=== PATIENT | male | born 1990 | race Two or more races ===

== ENCOUNTER 2023-12-28 09:55 | Inpatient (IN) | payer OTHER ==
[2023-12-28] MEDS: ACETAMINOPHEN 1000 MG/100 ML BAG IVPB ONE ×2 (10:20→15:39)
[2023-12-28] MEDS: SODIUM CHLORIDE 1,000 ML IV STA (10:20)
[2023-12-28] MEDS ORDERED: FENTANYL CITRATE/PF 50 MCG/ML VIAL ONE (10:23)
[2023-12-28] MEDS ORDERED: ACETAMINOPHEN INJECTION 100 ML IVPB ONE ×2 (10:24→15:34)
[2023-12-28 11:10] LABS: INR 1.15 (0.83-1.09); PROTHROMBIN TIME (PATIENT) 13.3 SEC (9.7-13.0)
[2023-12-28 11:11] LABS: ACTIVATED PTT 32.4 SECONDS (25.2-36.5); BASO % 0.5 % (0-2.0); EOS % 0.3 % (0-4.5); HEMATOCRIT 42.4 % (35.4-49); HEMOGLOBIN 14.2 GM/dL (11.7-16.9); LYMPH % 8.5 % (8-40); MCH 29.1 pg (25.7-33.7); MCHC 33.4 g/dl (32.0-35.9); MEAN CELL VOLUME 87.3 fl (80-96); MEAN PLT VOLUME 10.2 fl (7.5-11.1); MONO % 9.5 % (3.8-10.2); NEUT % 81.2 % (42.8-82.8); PLATELET COUNT 291 10^3/uL (134-434); RBC 4.86 M/mm3 (4.00-5.60); RDW 13.3 % (11.9-15.9); WHITE BLOOD COUNT 18.6 K/mm3 (4.0-10.0)
[2023-12-28 11:13] LABS: VENOUS BASE EXCESS 0.6 mmol/L (-2-2); VENOUS O2 SATURATION 70.4 % (70-80); VENOUS PCO2 38.5 mmHg (38-52); VENOUS PH 7.426 (7.310-7.410)
[2023-12-28] MEDS ORDERED: PIPERACILLIN/TAZOB 4.5 GM 4.5 GM/100 ML BAG IVPB ONE (11:14)
[2023-12-28] MEDS ORDERED: VANCOMYCIN 1 GRAM (PRE-DOCKED) 1,000 MG/250 ML BAG IVPB ONE (11:14)
[2023-12-28 11:24] LABS: POTASSIUM 4.4 mmol/L (3.5-5.1)
[2023-12-28 11:25] LABS: CALCIUM 8.9 mg/dL (8.5-10.1)
[2023-12-28 11:27] LABS: ALBUMIN 3.7 g/dl (3.4-5.0); BLOOD UREA NITROGEN 13.4 mg/dL (7-18)
[2023-12-28 11:30] LABS: CREATININE 1.1 mg/dL (0.55-1.3)
[2023-12-28 11:31] LABS: BILIRUBIN,TOTAL 0.8 mg/dL (0.2-1); TOT PROT 7.5 g/dl (6.4-8.2)
[2023-12-28] MEDS: PIPERACILLIN/TAZOB 4.5 GM 4.5 GM in DEXTROSE 5%-WATER - 100 ML IVPB ONE (11:45)
[2023-12-28] MEDS: VANCOMYCIN 1,000 MG in DEXTROSE 5%-WATER - 250 ML IVPB ONE (12:04)
[2023-12-28] MEDS: ERYTHROMYCIN *INJECTION* 500 MG VIAL IVPB ONE (12:50)
[2023-12-28 13:36] LABS: EPI CELLS 0 /uL (0-25.1); HYALINE CASTS 0 /uL (0-3.1); URINE APPEARANCE CLEAR; URINE BACTERIA 32 /uL (0-1359); URINE BILIRUBIN NEGATIVE (NEGATIVE); URINE COLOR YELLOW; URINE GLUCOSE (UA) NEGATIVE (NEGATIVE); URINE KETONE TRACE (NEGATIVE); URINE LEUK ESTERASE 2+ (NEGATIVE); URINE NITRITE NEGATIVE (NEGATIVE); URINE PROTEIN TRACE (NEGATIVE); URINE RBC 80 /uL (0-23.9); URINE UROBILINOGEN 0.2 mg/dL (0.2-1.0); URINE WBC 1025 /uL (0-25.8)
[2023-12-28] MEDS ORDERED: morphine SULFATE 4 MG/ML VIAL ONE (15:17)
[2023-12-28] MEDS: morphine CARPU-JECT 2 MG/1 ML DISP.SYRIN IVPUSH ONE (15:29)
[2023-12-28] MEDS ORDERED: IBUPROFEN 400 MG TABLET (FP) PO ONE (15:33)
[2023-12-28] MEDS: IBUPROFEN 400 MG TABLET (FP) PO ONE (15:38)
[2023-12-28] MEDS: DEXTROSE 5% IVPB ONE (16:21)
[2023-12-28] MEDS: WATER IVPB ONE (16:21)
[2023-12-28] MEDS: GENTAMICIN IVPB ONE (16:21)
[2023-12-28] MEDS ORDERED: KETOROLAC TROMETHAMINE 15 MG/ML VIAL IVPUSH PRN (16:25)
[2023-12-28] MEDS ORDERED: PIPERACILLIN/TAZOB 3.375 GM 3.375 GM in DEXTROSE 5%-WATER - 50 ML IVPB SCH ×2 (18:00→21:00)
[2023-12-28 21:23] VITALS: BMI 33.4
[2023-12-28] MEDS: PIPERACILLIN/TAZOB 3.375 GM 3.375 GM in DEXTROSE 5%-WATER - 50 ML IVPB SCH (22:00)
[2023-12-29] MEDS: ACETAMINOPHEN 1000 MG/100 ML BAG IVPB PRN (05:22)
[2023-12-29] MEDS: SODIUM CHLORIDE 1,000 ML IV STA (09:57)
[2023-12-29 10:00] LABS: BASO % 0.4 % (0-2.0); EOS % 0.5 % (0-4.5); HEMATOCRIT 39.6 % (35.4-49); LYMPH % 10.5 % (8-40); MCH 28.9 pg (25.7-33.7); MCHC 32.9 g/dl (32.0-35.9); MEAN CELL VOLUME 87.9 fl (80-96); MEAN PLT VOLUME 10.2 fl (7.5-11.1); NEUT % 81.6 % (42.8-82.8); PLATELET COUNT 241 10^3/uL (134-434); RDW 13.1 % (11.9-15.9); WHITE BLOOD COUNT 18.4 K/mm3 (4.0-10.0)
[2023-12-29] MEDS: ENOXAPARIN NA (PORCINE) 40 MG/0.4 ML DISP.SYRIN SQ SCH (10:00)
[2023-12-29 10:17] LABS: POTASSIUM 3.5 mmol/L (3.5-5.1)
[2023-12-29 10:24] LABS: BLOOD UREA NITROGEN 11.8 mg/dL (7-18); CALCIUM 8.5 mg/dL (8.5-10.1); MAGNESIUM 1.8 mg/dL (1.8-2.4)
[2023-12-29 10:27] LABS: CREATININE 1.1 mg/dL (0.55-1.3); PHOSPHOROUS 1.8 mg/dL (2.5-4.9)
[2023-12-29 10:28] LABS: BILIRUBIN,TOTAL 0.8 mg/dL (0.2-1)
[2023-12-29 10:29] LABS: TOT PROT 6.3 g/dl (6.4-8.2)
[2023-12-29] MEDS: DOXYCYCLINE INJECTION 100 MG in DEXTROSE 5%-WATER 100 ML IVPB SCH (15:00)
[2023-12-29] MEDS ORDERED: NAPH,MB-DB/K PH,MBDB POWDER PACKET PO ONE (16:19)
[2023-12-29] MEDS ORDERED: ACETAMINOPHEN 500 MG TABLET (FP) PO PRN (18:15)
[2023-12-29] MEDS: NAPH,MB-DB/K PH,MBDB POWDER PACKET PO ONE (22:08)
[2023-12-29] MEDS ORDERED: ACETAMINOPHEN 325 MG TABLET (FP) PO PRN (22:28)
[2023-12-30] MEDS: PIPERACILLIN/TAZOB 3.375 GM 3.375 GM in DEXTROSE 5%-WATER - 50 ML IVPB SCH (00:39)
[2023-12-30 08:10] LABS: HEMATOCRIT 40.3 % (35.4-49); HEMOGLOBIN 13.4 GM/dL (11.7-16.9); MCH 29.4 pg (25.7-33.7); MCHC 33.4 g/dl (32.0-35.9); MEAN PLT VOLUME 9.9 fl (7.5-11.1); PLATELET COUNT 267 10^3/uL (134-434); RBC 4.58 M/mm3 (4.00-5.60); RDW 13.2 % (11.9-15.9); WHITE BLOOD COUNT 14.7 K/mm3 (4.0-10.0)
[2023-12-30 08:22] LABS: POTASSIUM 3.9 mmol/L (3.5-5.1)
[2023-12-30 08:25] LABS: CALCIUM 8.8 mg/dL (8.5-10.1)
[2023-12-30 08:26] LABS: ALBUMIN 2.9 g/dl (3.4-5.0); BLOOD UREA NITROGEN 10.2 mg/dL (7-18); MAGNESIUM 2.1 mg/dL (1.8-2.4)
[2023-12-30 08:30] LABS: CREATININE 1.1 mg/dL (0.55-1.3); PHOSPHOROUS 3.6 mg/dL (2.5-4.9)
[2023-12-30 08:31] LABS: BILIRUBIN,TOTAL 0.5 mg/dL (0.2-1); TOT PROT 6.7 g/dl (6.4-8.2)
[2023-12-31 09:31] VITALS: RESP 18
[2023-12-31 09:52] LABS: BASO % 1.1 % (0-2.0); EOS % 4.5 % (0-4.5); HEMATOCRIT 42.3 % (35.4-49); HEMOGLOBIN 14.5 GM/dL (11.7-16.9); LYMPH % 22.7 % (8-40); MCH 29.9 pg (25.7-33.7); MCHC 34.3 g/dl (32.0-35.9); MEAN CELL VOLUME 87.3 fl (80-96); MONO % 7.8 % (3.8-10.2); NEUT % 63.9 % (42.8-82.8); PLATELET COUNT 360 10^3/uL (134-434); RBC 4.85 M/mm3 (4.00-5.60); RDW 13.4 % (11.9-15.9); WHITE BLOOD COUNT 7.9 K/mm3 (4.0-10.0)
[2023-12-31 10:09] LABS: POTASSIUM 4.5 mmol/L (3.5-5.1)
[2023-12-31 10:14] LABS: EPI CELLS 1 /uL (0-25.1); HYALINE CASTS 3 /uL (0-3.1); PH,URINE 6.5 (5.0-8.0); URINE APPEARANCE CLEAR; URINE BACTERIA 13 /uL (0-1359); URINE BILIRUBIN NEGATIVE (NEGATIVE); URINE COLOR YELLOW; URINE GLUCOSE (UA) NEGATIVE (NEGATIVE); URINE KETONE NEGATIVE (NEGATIVE); URINE LEUK ESTERASE 3+ (NEGATIVE); URINE NITRITE NEGATIVE (NEGATIVE); URINE PROTEIN TRACE (NEGATIVE); URINE RBC 14 /uL (0-23.9); URINE UROBILINOGEN 0.2 mg/dL (0.2-1.0); URINE WBC 700 /uL (0-25.8)
[2023-12-31 10:22] LABS: BLOOD UREA NITROGEN 11.4 mg/dL (7-18); CALCIUM 9.5 mg/dL (8.5-10.1)
[2023-12-31 10:23] LABS: ALBUMIN 3.2 g/dl (3.4-5.0)
[2023-12-31 10:26] LABS: BILIRUBIN,TOTAL 0.4 mg/dL (0.2-1)
[2023-12-31 10:27] LABS: TOT PROT 7.2 g/dl (6.4-8.2)
[2023-12-31 14:22] VITALS: BP 140/77; PULSE 85; TEMP 98
== END 2023-12-31 14:30 | disposition home or self-care (01) | DRG 872 ==
LOC: JER 09:55 → JERBED 15:00 → J6S 18:07
PROVIDERS: ADMIT Internal Medicine; ATTEND Internal Medicine
DX: A41.9 Sepsis, unspecified organism (principal); N41.0 Acute prostatitis; E87.1 Hypo-osmolality and hyponatremia; K40.90 Unilateral inguinal hernia, without obstruction or gangrene, not specified as recurrent; R31.29 Other microscopic hematuria; D72.829 Elevated white blood cell count, unspecified
CPT/HCPCS: 0241U-QW; 36415; 71045-TC-FY; 74176-TC; 76870-TC; 80053; 81003; 82550; 82803; 83036; 83605; 83735; 83874; 84100; 84484; 85025; 85027; 85610; 85730; 86780; 86850; 86900; 86901; 87040; 87086; 87491; 87591; 93005; 93010; 99285-25; J0131